=== PATIENT | male | born 1985 | race Caucasian/White ===

== ENCOUNTER 2016-04-14 14:55 | Emergency (ER) | payer MEDICARE, MEDICAID ==
[2016-04-14] MEDS ORDERED: Lorazepam 2 MG/ML VIAL ONE (15:05)
[2016-04-14 15:20] LABS: #Basophils 0.1 thou/uL (0.0-0.2); #Eosinphils 0.1 thou/uL (0.0-0.7); #Lymphocytes 1.7 thou/uL (1.20-3.40); #Monocytes 1.2 thou/uL (0.11-0.59); #Neutrophils 8.4 thou/uL (1.40-6.50); %Basophils 0.7 % (0.0-1.0); %Eosinophils 0.9 % (0.0-10.0); %Monocytes 10.4 % (0.0-10.0); Hematocrit 42.1 % (42.0-52.0); Mean Platelet Volume 7.6 fL (7.4-10.4); Red Blood Cell (RBC) Count 4.48 mill/uL (4.70-6.10); White Blood Cell (WBC) Count 11.4 thou/uL (4.8-10.8)
[2016-04-14 15:35] LABS: ALT (SGPT) 27 U/L (0-55); AST (SGOT) 31 U/L (5-34); Alkaline Phosphatase 62 U/L (40-150); Anion Gap 15 mmol/L (10-20); BUN (Urea Nitrogen) 6 mg/dL (8.9-20.6); Bilirubin, Total 0.6 mg/dL (0.2-1.2); CK (CPK) 2105 U/L (30-200); Calc. Creatinine Clearance 0 mL/min (70-130); Calcium 8.9 mg/dL (7.8-10.44); Carbon Dioxide 23 mmol/L (22-29); Chloride 109 mmol/L (98-107); Estimated GFR-MDRD 83; Protein, Total 6.1 g/dL (6.0-8.3)
--- NOTE | 2016-04-14 16:49 | ERRECORD ---
[facility] EMERGENCY RECORD HPI GENERAL (15:07 [facility] CHIEF COMPLAINT: Patient presents for evaluation of Drug abuse. HISTORIAN: History provided by patient, 30M with a history of bipolar disorder and drug abuse BIBEMS and SO after grandparents called police due to abnormal behavior. Patient was apparently running in circles on grandparents property, agitated and acting bizarrely. Recently seen in [facility] for similar complaint last night. Reports Methamphetamine use today, denies any other use. States he took 10 Benadryl prior to last ED visit, which is corroborated by ED note from other facility. Denies complaints other than wrist pain from handcuffs. QUALITY: Unable to describe the quality of the pain. TIME COURSE: Sudden onset of symptoms, Symptoms are improving. RELIEVED BY: Patient's condition relieved by prescription medications, ativan given by EMS. ROS (15:11 JJA) CONSTITUTIONAL: Negative constitutional review of systems, Historian denies chills, denies fever. EYES: Negative eye review of systems, Historian denies eye pain, denies vision changes. ENT: Negative ears, nose, throat review of systems, Historian denies rhinorrhea, denies sore throat, denies voice changes. CARDIOVASCULAR: Negative cardiovascular review of systems, Historian denies chest pain, denies palpitations. RESPIRATORY: Negative respiratory review of systems, Historian denies cough, denies shortness of breath. GI: Negative gastrointestinal review of systems, Historian denies abdominal pain, denies constipation, denies diarrhea, denies nausea, denies vomiting. GENITOURINARY FEMALE: Negative genitourinary review of systems, Historian denies dysuria, denies frequency. MUSCULOSKELETAL: Negative musculoskeletal review of systems, Historian denies back pain, denies fall, denies injury. SKIN: Negative skin review of systems, Historian denies rash, denies skin changes. NEUROLOGIC: Negative neurologic review of systems, Historian denies headache, denies mental status changes, denies paralysis, denies paresthesias, denies sensory changes. HEMO/LYMPHATIC: Normal hematologic/lymphatic system review, Historian denies abnormal blood clotting. ALLERGIC/IMMUNOLOGIC: Normal allergy/immunologic system review, Historian denies frequent infections. PSYCHIATRIC: Historian reports drug abuse, reports methamphetamine abuse. agitated, aggresive. PAST MEDICAL HISTORY (15:17 CTUR) MEDICAL HISTORY: kidney stones. 01/21/16. Reviewed 04/13/16. &a-1R&a+25V*p+0X*i1610M*c202B*c15G*c2P*p-0X&a-25V&a+1R Name: Cooper Vargas : 1985 M30 MedRec: [id number] AcctNum: [id number] Prepared: TueApr 14, 2016 17:19 by Interface Page 1 of 4 pMD [facility] EMERGENCY RECORD reviewed 04/14/16. MALE SURGICAL HISTORY: urethra as a child, verified 10/29/15. 04/13/16. reviewed 04/14/16. PSYCHIATRIC HISTORY: Psychiatric history includes, bipolar disorder. 01/21/16. Reviewed 04/13/16. reviewed 04/14/16. SOCIAL HISTORY: Patient denies alcohol use, Patient currently uses drugs, abuses amphetamines, abuses marijuana, abuses methamphetamines, Social drug use, Last used: mairjuana 02/04/16, Meth x4 days ago, Drug history notes: bath salts, Patient currently uses tobacco, smokes cigarettes, chews tobacco, daily, Patient smokes 1/2 packs per day. reviewed 04/14/16. KNOWN ALLERGIES Geodon oral: - muscle spasms Haldol injection: - muscle spasms Haldol tablet Latuda: - muscle spasms Moxifloxacin (Unconfirmed) Penicillin G Sodium (Unconfirmed) Penicillins Quinolones (Unconfirmed) CURRENT MEDICATIONS (15:47 CTUR) SEROquel: TABLET : Strength - 200 mg : ORAL Patient Dose: 1 tab(s) Oral once a day (at bedtime). VITAL SIGNS VITAL SIGNS: BP: 140/121, Pulse: 96, Resp: 22, Temp: 98.4 (Oral), O2 sat: 96 on Room Air, Time: 04/14/2016 15:00. (15:00 CTUR) BP: 124/70, Pulse: 98, Resp: 20, Pain: 9, O2 sat: 96 on Room Air, Time: 04/14/2016 15:15. (15:15 CTUR) BP: 120/79, Pulse: 99, Resp: 18, Temp: 98.4 (Oral), Pain: 8, O2 sat: 97 on Room Air, Time: 04/14/2016 16:09. (16:09 CTUR) PHYSICAL EXAM (15:11 [facility]) CONSTITUTIONAL: Vital signs reviewed, Patient afebrile, Pulse normal, Blood pressure normal, Respiratory rate normal, Patient appears non toxic, Patient appears pain free, Patient alert and oriented to person, place and time. HEAD: Head exam normal, Head exam included findings of head atraumatic, normocephalic. EYES: Eye exam normal, Eye exam included findings of eyelids normal to inspection, Pupils equally round and reactive to light, Extraocular muscles intact, no nystagmus. ENT: ENT exam normal, Ear exam normal, external ear normal, tympanic membranes normal, no bleeding, Pharynx exam normal, Uvula exam normal, Tonsil exam normal, Mouth exam normal, mucous membranes moist, teeth normal. NECK: Neck exam normal, Neck exam included findings of normal &a-1R&a+25V*p+0X*[id number]*c202B*c15G*c2P*p-0X&a-25V&a+1R Name: Cooper Vargas : 1985 M30 MedRec: [id number] AcctNum: [id number] Prepared: TueApr 14, 2016 17:19 by Interface Page 2 of 4 D [facility] EMERGENCY RECORD range of motion, Trachea midline, no meningeal signs, no cervical adenopathy, no tenderness. RESPIRATORY CHEST: Respiratory and chest exam normal, Respiratory exam included findings of no respiratory distress, Breath sounds clear. CARDIOVASCULAR: Cardiovascular assessment normal, Cardiovascular exam included findings of heart rate regular rate and rhythm, Heart sounds normal. ABDOMEN FEMALE: Abdominal exam included findings of abdomen nontender, Bowel sounds normal, no distension, no mass, no pulsatile masses, no peritoneal signs, no rigidity, no guarding, no rebound, Rovsing's sign absent. BACK: Back exam normal, Back exam included findings of normal inspection, range of motion normal, no tenderness. UPPER EXTREMITY: Upper extremity exam normal, Upper extremity exam included findings of inspection normal, Range of motion normal, Motor strength normal, Sensation intact, Radial pulse normal. LOWER EXTREMITY: Lower extremity exam normal, Lower extremity exam included findings of inspection normal, Range of motion normal, Motor strength normal, Sensation intact, Posterior tibial pulse normal, Pedal pulse normal. NEURO: Neuro exam normal, Neuro exam findings include patient oriented to person, place and time, Speech normal, Gait normal, Cranial nerves intact, no focal motor deficits, no focal sensory deficits. SKIN: Skin exam normal, Skin exam included findings of skin warm, dry, and normal in color, no rash. PSYCHIATRIC: Psychiatric exam included findings of patient oriented to person place and time, Normal affect, agitated, hyperactive, but responding to questions appropriately and coherently. MEDICATION ADMINISTRATION SUMMARY Drug Name: *Normal Saline, Dose Ordered: 1000 mL, Route: IV Fluid Infusion, Status: Given, Time: 16:10 04/14/2016, Drug Name: *Normal Saline, Dose Ordered: 1000 mL, Route: IV Fluid Infusion, Status: Given, Time: 15:40 04/14/2016, Drug Name: Ativan injection, Dose Ordered: 1 mg, Route: IV Push, Status: Given, Time: 15:08 04/14/2016, *Additional information available in notes, Detailed record available in Medication Service section. DOCTOR NOTES (16:26 [facility]) RE-EVALUATION: Routine re-evaluation, after administration of IV fluids, Routine re-evaluation, after administration of sedation, The patient's condition has improved. TEXT: Patient presented after drug use with agitation and combative behavior. Admitted to Methamphetamine use. VS stable, but labs notable for mild rhabdomyolysis likely secondary to drug use and &a-1R&a+25V*p+0X*k1288C*c202B*c15G*c2P*p-0X&a-25V&a+1R Name: Cooper Vargas : 1985 M30 MedRec: [id number] AcctNum: [id number] Prepared: TueApr 14, 2016 17:19 by Interface Page 3 of 4 pMD [facility] EMERGENCY RECORD agitation. Delivered two litres of IV fluids, has normal renal function, and at this time I believe the patient is appropriate for discharge into police custody. Counseled patient on drug use. He denied SI/HI. PATIENT STATUS: Patient has improved since arrival to emergency department. PATIENT PLAN: The patient will be discharged. DATA REVIEWED: Lab data reviewed. PROBLEM LIST No recorded problems DIAGNOSIS (16:43 [facility]) FINAL: PRIMARY: RHABDOMYOLYSIS, ADDITIONAL: substance abuse. PRESCRIPTION No recorded prescriptions DISPOSITION PATIENT: Disposition Type: Discharge, Disposition: Discharge to [facility]. (16:43 KEVAN) Patient left the department. (17:13 ASIYA) Figueroa: ASIYA=DAISY Lopez, Carolina MATHUR=MD Pat, Emiliano &a-1R&a+25V*p+0X*[id number]*c202B*c15G*c2P*p-0X&a-25V&a+1R Name: Cooper Vargas Johnathon : 1985 M30 MedRec: [id number] AcctNum: [id number] Prepared: TueApr 14, 2016 17:19 by Interface Page 4 of 4 pMD MTDD
--- NOTE | 2016-04-14 16:55 | PICIS ---
[facility] EMERGENCY RECORD TRIAGE (TueApr 14, 2016 14:59 CTUR) TRIAGE NOTES: Pt was found standing in driveway running in circles, pt suspected of taking bath salts, pt is very agitated. At this time pt yells requesting to remove hand cuffs, denies taking any substances. 2mgIVP Ativan given RELAY OPERATOR. (TueApr 14, 2016 14:59 CTUR) PATIENT: NAME: Cooper Vargas, AGE: 30, GENDER: male, : Sun 1985, TIME OF GREET: TueApr 14, 2016 14:55, PREFERRED LANGUAGE: Tamazight, ETHNICITY: Not or , ECODE BILLING MAP: [facility], SSN: [id number], Zip Code: [address], PHONE: , , , PERSON ID: [id number], PAYMENT: X Medicare. (TueApr 14, 2016 14:59 CTUR) KG WEIGHT: 81.7 (est.). (14:59 CTUR) ADMISSION: URGENCY: 2 Emergent, ADMISSION SOURCE: Home, TRANSP[place] [facility], BED: TRIAGE. (TueApr 14, 2016 14:59 CTUR) SIRS SCORING: Heart Rate 55-109 (0), Heart Rate 110-139 (2), Temp range 96.8-101.1 (0), respiratory rate 12-24 (0), Mental status altered: yes (1), Total SIRS Score 3. (15:17 CTUR) PROVIDERS: TRIAGE NURSE: Carolina Lopez RN. (TueApr 14, 2016 14:59 CTUR) PREVIOUS VISIT ALLERGIES: Geodon oral, Haldol injection, Haldol tablet, Latuda, Penicillins. (TueApr 14, 2016 14:59 CTUR) Geodon oral, Haldol injection, Haldol tablet, Latuda, Penicillins. (15:17 CTUR) KNOWN ALLERGIES Geodon oral: - muscle spasms Haldol injection: - muscle spasms Haldol tablet Latuda: - muscle spasms Moxifloxacin (Unconfirmed) Penicillin G Sodium (Unconfirmed) Penicillins Quinolones (Unconfirmed) CURRENT MEDICATIONS (15:47 CTUR) SEROquel: TABLET : Strength - 200 mg : ORAL Patient Dose: 1 tab(s) Oral once a day (at bedtime). VITAL SIGNS VITAL SIGNS: BP: 140/121, Pulse: 96, Resp: 22, Temp: 98.4 (Oral), O2 sat: 96 on Room Air, Time: 04/14/2016 15:00. (15:00 CTUR) BP: 124/70, Pulse: 98, Resp: 20, Pain: 9, O2 sat: 96 on Room Air, Time: 04/14/2016 15:15. (15:15 CTUR) BP: 120/79, Pulse: 99, Resp: 18, Temp: 98.4 (Oral), Pain: 8, O2 sat: 97 on Room Air, Time: 04/14/2016 16:09. (16:09 CTUR) &a-1R&a+25V*p+0X*b5105R*c202B*c15G*c2P*p-0X&a-25V&a+1R Name: Cooper Vargas : 1985 M30 MedRec: [id number] AcctNum: [id number] Prepared: TueApr 14, 2016 17:19 by Interface Page 1 of 9 pMD [facility] EMERGENCY RECORD NURSING ASSESSMENT: PSYCH/SOCIAL (15:02 CTUR) CONSTITUTIONAL: Complex assessment performed, Patient arrives, via [facility], Unsteady gait, Lift to cart, History obtained from, [facility], Patient appears, intoxicated, Patient, combative, agitated, Patient alert, Patient is, oriented to place, "I don't know where I am at", Skin warm, Skin dry, Skin, ashen in color, Mucous membranes pink, Mucous membranes moist, Patient, poorly groomed, with poor personal hygiene, Patient complains of Ingestion, Pt has ingested unknown substance, possible meth ingestion per EMS report. EMS administered 2mg Ativan IVP filling room operator due to pt agitated states. At this time pt is cursing and yelling "take me out of these fucking handcuffs", "tell me what I did to deserve this". Pt is agitated and not safe to be out of cuffs a. PSYCH/SOCIAL: Psychiatric/social assessment findings include affect, agitated, aggressive, crying, no complaint of visual hallucinations, no complaint of auditory hallucinations, no complaint of tactile hallucinations, no suicidal ideations, no homicidal ideations, no reported overdose. SUICIDE RISK ASSESSMENT TOOL: Suicide Risk Assessment findings: Mental State (Moderate risk):, moderate depression, some sadness, some symptoms of psychosis, some feelings of hopelessness, moderate anger, hostility, Suicide Attempt or Suicidal Thoughts (Low risk):, no recent attempts, Substance Disorder (High risk):, current substance intoxication, Corroborative History (Moderate risk):, access to some information, some doubts to plausibility of person's account of events, Strengths and Support (High risk):, lack of supportive relationships, hostile relationships, Reflective Practice (High risk):, high changeability, Suicide Risk: None, no evidence of current risk to the person, no thought of suicide or history of attempts, This person's risk level is highly changeable, There are factors that indicate a level of uncertainty in this risk assessment, indicating a low assessment confidence. SAFETY: Side rails up, Cart/Stretcher in lowest position, Call light within reach, Hospital ID band on, Notes: officer at bedside, pt cuffs behind his back. NURSING PROCEDURE: INTAKE AND OUTPUT (15:30 AHOO) INTAKE AND OUTPUT: Total Intake (ml): 0ml, Urine output(ml): 150, Total Output (ml): 150ml, Grand Total: Output is greater than intake by 150mls. NURSING PROCEDURE: IV PATIENT IDENITIFIER: Patient actively involved in identification process, Patient's identity verified by patient stating date, &a-1R&a+25V*p+0X*d9112G*c202B*c15G*c2P*p-0X&a-25V&a+1R Name: Cooper Vargas : 1985 M30 MedRec: [id number] AcctNum: [id number] Prepared: TueApr 14, 2016 17:19 by Interface Page 2 of 9 D [facility] EMERGENCY RECORD Patient's identity verified by hospital ID quirinocelet. (15:05 CTUR) IV SITE 1: IV therapy indicated for medication administration, IV established, to the right forearm, using a 20 gauge catheter, in one attempt, IV site prepped with chloraprep, Saline lock established, Flushed with normal saline (mls): 10. (15:05 CTUR) FOLLOW-UP SITE 1: After procedure, 2x2 dressing applied, After procedure, no drainage at IV site, After procedure, no swelling at IV site, After procedure, no redness at IV site, IV discontinued, due to patient being discharged, catheter intact. (17:00 AHOO) SAFETY: Side rails up, Cart/Stretcher in lowest position, Call light within reach, Hospital ID band on. (15:05 CTUR) NURSING PROCEDURE: NURSE NOTES NURSES NOTES: Notes: Officer at bedside at this time, removed cuffs from behind pt back and cuffed pt to bilat side rails of hospital bed. (15:25 CTUR) Notes: Pt left hand uncuffed at this time to assist with urinal, pt tolerated and cooperated with the process. Pt then recuffed to the bed, officer remains at bedside. (15:35 CTUR) Notes: Pt has now admitted to snorting meth taking K2 and snorting a line of dope. Pt reports taking speed as well. Officer at bedside, pt remains moving about in the bed with frantic motions. (15:40 CTUR) Notes: Officer remains at bedside, pt continues to move about in the bed, both hands remain cuffed to side rails at this time. Pt crying and intermittently asking if he willgo to penitentiary or not. ERMD aware of pt condition, saline infusing. (16:21 CTUR) Notes: Pt assisted with use of urinal, left hand uncuffed at this time, pt cooperated throughout procedure. Pt then placed back in cuffs to both side rails, fluids continue infusing. (16:35 CTUR) NURSING PROCEDURE: URINE COLLECTION (15:30 AHOO) PATIENT IDENTIFIER: Patient actively involved in identification process, Patient's identity verified by patient stating name, Patient's identity verified by patient stating date, Patient's identity verified by hospital ID bracelet. URINE COLLECTION MALE: Urine collected by void, urine clear in color, and cloudy, Notes: 150CC URINE. ORDER DETAILS Order Name: CBC with Differential, Status: Active, Time: 15:03 04/14/2016, User: KEVAN, - Ordered for: MD Stewart Jason, - Entered by: MD Stewart Jason - TueApr 14, 2016 15:03, - Quantity: 1, Order Name: CK (CPK), Status: Active, Time: 15:03 04/14/2016, User: KEVAN, - Ordered for: MD Stewart Jason, - Entered by: MD Stewart Jason - TueApr 14, 2016 15:03, &a-1R&a+25V*p+0X*v9480S*c202B*c15G*c2P*p-0X&a-25V&a+1R Name: Cooper Vargas : 1985 M30 MedRec: [id number] AcctNum: [id number] Prepared: TueApr 14, 2016 17:19 by Interface Page 3 of 9 D [facility] EMERGENCY RECORD - Quantity: 1, Order Name: Comprehensive Metabolic Panel, Status: Active, Time: 15:03 04/14/2016, User: KEVAN, - Ordered for: MD Stewart Jason, - Entered by: MD Stewart Jason - TueApr 14, 2016 15:03, - Quantity: 1, Order Name: SALINE LOCK, Status: Done, Time: 15:13 04/14/2016, User: ASIYA, - Ordered for: MD Stewart Jason, - Entered by: MD Stewart Jason - TueApr 14, 2016 15:03, - Quantity: 1. MEDICATION ADMINISTRATION SUMMARY Drug Name: *Normal Saline, Dose Ordered: 1000 mL, Route: IV Fluid Infusion, Status: Given, Time: 16:10 04/14/2016, Drug Name: *Normal Saline, Dose Ordered: 1000 mL, Route: IV Fluid Infusion, Status: Given, Time: 15:40 04/14/2016, Drug Name: Ativan injection, Dose Ordered: 1 mg, Route: IV Push, Status: Given, Time: 15:08 04/14/2016, *Additional information available in notes, Detailed record available in Medication Service section. MEDICATION SERVICE Ativan injection: Order: Ativan injection (lorazepam) - Dose: 1 mg : IV Push Ordered by: Emiliano Stewart MD Entered by: Emiliano Stewart MD TueApr 14, 2016 15:05 Documented as given by: Carolina Lopez RN TueApr 14, 2016 15:08 Patient, Medication, Dose, Route and Time verified prior to administration. Amount given: 1mg, IV SITE #1 IVP, initial medication, Slowly, Catheter placement confirmed via flush prior to administration, IV site without signs or symptoms of infiltration during medication administration, No swelling during administration, No drainage during administration, IV flushed after administration, Correct patient, time, route, dose and medication confirmed prior to administration, Patient advised of actions and side-effects prior to administration, Allergies confirmed and medications reviewed prior to administration, Patient in position of comfort, Side rails up, Cart in lowest position. : Follow Up : Response assessment performed, No signs or symptoms of allergic reaction noted, _IV SITE #1:_, PT REMAINS AGITATED. (17:00 AHOO) Normal Saline: Order: Normal Saline (0.9 % sodium chloride) - Dose: 1000 mL : IV Fluid Infusion Schedule: Bolus Notes: Read back and verified, Verbal Order Ordered by: Emiliano Stewart MD Entered by: Carolina Lopez RN TueApr 14, 2016 16:16 &a-1R&a+25V*p+0X*b1754Y*c202B*c15G*c2P*p-0X&a-25V&a+1R Name: Cooper Vargas : 1985 M30 MedRec: [id number] AcctNum: [id number] Prepared: TueApr 14, 2016 17:19 by Interface Page 4 of 9 pMD [facility] EMERGENCY RECORD Documented as given by: Carolina Lopez RN TueApr 14, 2016 15:40 Patient, Medication, Dose, Route and Time verified prior to administration. Amount given: 1000mL, IV SITE #1 IV fluids established for hydration, IV SITE #1 into right forearm, IV SITE #1 1st bag hung, amount 1 Liter hung, via primary tubing, Catheter placement confirmed via flush prior to administration, IV site without signs or symptoms of infiltration during medication administration, No swelling during administration, No drainage during administration, IV flushed after administration, Correct patient, time, route, dose and medication confirmed prior to administration, Patient advised of actions and side-effects prior to administration, Allergies confirmed and medications reviewed prior to administration, Patient in position of comfort, Side rails up, Cart in lowest position. : Follow Up : Response assessment performed, No signs or symptoms of allergic reaction noted, Increased urine output, _IV SITE #1:_, IV fluid infusion discontinued, on TueApr 14, 2016 16:09, 30 minutes, ., Total amount infused: 1000mL, Advised not to ambulate without assistance, Patient in position of comfort, Side rails up, Cart in lowest position. (16:08 CTUR) Normal Saline: Order: Normal Saline (0.9 % sodium chloride) - Dose: 1000 mL : IV Fluid Infusion Schedule: Bolus Notes: Read back and verified, Verbal Order Ordered by: Emiliano Stewart MD Entered by: Carolina Lopez RN TueApr 14, 2016 16:18 Documented as given by: Carolina Lopez RN TueApr 14, 2016 16:10 Patient, Medication, Dose, Route and Time verified prior to administration. Amount given: 1000mL, IV SITE #1 IV fluids established for hydration, IV SITE #1 into right forearm, IV SITE #1 2nd bag hung, amount 1 Liter hung, via primary tubing, Catheter placement confirmed via flush prior to administration, IV site without signs or symptoms of infiltration during medication administration, No swelling during administration, No drainage during administration, IV flushed after administration, Correct patient, time, route, dose and medication confirmed prior to administration, Patient advised of actions and side-effects prior to administration, Allergies confirmed and medications reviewed prior to administration, Patient in position of comfort, Side rails up, Cart in lowest position. : Follow Up : Response assessment performed, No signs or symptoms of allergic reaction noted, _IV SITE #1:_, IV fluid infusion discontinued, on TueApr 14, 2016 17:00, 50 minutes, ., Total amount infused: 1L, IV Discontinued with catheter intact. (17:00 OO) HPI GENERAL (15:07 [facility]) CHIEF COMPLAINT: Patient presents for evaluation of Drug abuse. &a-1R&a+25V*p+0X*c2129A*c202B*c15G*c2P*p-0X&a-25V&a+1R Name: Cooper Vargas : 1985 M30 MedRec: [id number] AcctNum: [id number] Prepared: TueApr 14, 2016 17:19 by Interface Page 5 of 9 pMD [facility] EMERGENCY RECORD HISTORIAN: History provided by patient, 30M with a history of bipolar disorder and drug abuse BIBEMS and SO after grandparents called police due to abnormal behavior. Patient was apparently running in circles on grandparents property, agitated and acting bizarrely. Recently seen in [facility] for similar complaint last night. Reports Methamphetamine use today, denies any other use. States he took 10 Benadryl prior to last ED visit, which is corroborated by ED note from other facility. Denies complaints other than wrist pain from handcuffs. QUALITY: Unable to describe the quality of the pain. TIME COURSE: Sudden onset of symptoms, Symptoms are improving. RELIEVED BY: Patient's condition relieved by prescription medications, ativan given by EMS. ROS (15:11 [facility]) CONSTITUTIONAL: Negative constitutional review of systems, Historian denies chills, denies fever. EYES: Negative eye review of systems, Historian denies eye pain, denies vision changes. ENT: Negative ears, nose, throat review of systems, Historian denies rhinorrhea, denies sore throat, denies voice changes. CARDIOVASCULAR: Negative cardiovascular review of systems, Historian denies chest pain, denies palpitations. RESPIRATORY: Negative respiratory review of systems, Historian denies cough, denies shortness of breath. GI: Negative gastrointestinal review of systems, Historian denies abdominal pain, denies constipation, denies diarrhea, denies nausea, denies vomiting. GENITOURINARY FEMALE: Negative genitourinary review of systems, Historian denies dysuria, denies frequency. MUSCULOSKELETAL: Negative musculoskeletal review of systems, Historian denies back pain, denies fall, denies injury. SKIN: Negative skin review of systems, Historian denies rash, denies skin changes. NEUROLOGIC: Negative neurologic review of systems, Historian denies headache, denies mental status changes, denies paralysis, denies paresthesias, denies sensory changes. HEMO/LYMPHATIC: Normal hematologic/lymphatic system review, Historian denies abnormal blood clotting. ALLERGIC/IMMUNOLOGIC: Normal allergy/immunologic system review, Historian denies frequent infections. PSYCHIATRIC: Historian reports drug abuse, reports methamphetamine abuse. agitated, aggresive. PAST MEDICAL HISTORY (15:17 CTUR) MEDICAL HISTORY: kidney stones. 01/21/16. Reviewed 04/13/16. reviewed 04/14/16. MALE SURGICAL HISTORY: urethra as a child, verified 10/29/15. 04/13/16. reviewed 04/14/16. &a-1R&a+25V*p+0X*f6062R*c202B*c15G*c2P*p-0X&a-25V&a+1R Name: Cooper Vargas : 1985 M30 MedRec: [id number] AcctNum: [id number] Prepared: TueApr 14, 2016 17:19 by Interface Page 6 of 9 pMD [facility] EMERGENCY RECORD PSYCHIATRIC HISTORY: Psychiatric history includes, bipolar disorder. 01/21/16. Reviewed 04/13/16. reviewed 04/14/16. SOCIAL HISTORY: Patient denies alcohol use, Patient currently uses drugs, abuses amphetamines, abuses marijuana, abuses methamphetamines, Social drug use, Last used: mairjuana 02/04/16, Meth x4 days ago, Drug history notes: bath salts, Patient currently uses tobacco, smokes cigarettes, chews tobacco, daily, Patient smokes 1/2 packs per day. reviewed 04/14/16. PHYSICAL EXAM (15:11 [facility]) CONSTITUTIONAL: Vital signs reviewed, Patient afebrile, Pulse normal, Blood pressure normal, Respiratory rate normal, Patient appears non toxic, Patient appears pain free, Patient alert and oriented to person, place and time. HEAD: Head exam normal, Head exam included findings of head atraumatic, normocephalic. EYES: Eye exam normal, Eye exam included findings of eyelids normal to inspection, Pupils equally round and reactive to light, Extraocular muscles intact, no nystagmus. ENT: ENT exam normal, Ear exam normal, external ear normal, tympanic membranes normal, no bleeding, Pharynx exam normal, Uvula exam normal, Tonsil exam normal, Mouth exam normal, mucous membranes moist, teeth normal. NECK: Neck exam normal, Neck exam included findings of normal range of motion, Trachea midline, no meningeal signs, no cervical adenopathy, no tenderness. RESPIRATORY CHEST: Respiratory and chest exam normal, Respiratory exam included findings of no respiratory distress, Breath sounds clear. CARDIOVASCULAR: Cardiovascular assessment normal, Cardiovascular exam included findings of heart rate regular rate and rhythm, Heart sounds normal. ABDOMEN FEMALE: Abdominal exam included findings of abdomen nontender, Bowel sounds normal, no distension, no mass, no pulsatile masses, no peritoneal signs, no rigidity, no guarding, no rebound, Rovsing's sign absent. BACK: Back exam normal, Back exam included findings of normal inspection, range of motion normal, no tenderness. UPPER EXTREMITY: Upper extremity exam normal, Upper extremity exam included findings of inspection normal, Range of motion normal, Motor strength normal, Sensation intact, Radial pulse normal. LOWER EXTREMITY: Lower extremity exam normal, Lower extremity exam included findings of inspection normal, Range of motion normal, Motor strength normal, Sensation intact, Posterior tibial pulse normal, Pedal pulse normal. NEURO: Neuro exam normal, Neuro exam findings include patient oriented to person, place and time, Speech normal, Gait normal, Cranial nerves intact, no focal motor deficits, no focal sensory deficits. SKIN: Skin exam normal, Skin exam included findings of skin warm, &a-1R&a+25V*p+0X*y4439T*c202B*c15G*c2P*p-0X&a-25V&a+1R Name: Cooper Vargas : 1985 M30 MedRec: [id number] AcctNum: [id number] Prepared: TueApr 14, 2016 17:19 by Interface Page 7 of 9 pMD [facility] EMERGENCY RECORD dry, and normal in color, no rash. PSYCHIATRIC: Psychiatric exam included findings of patient oriented to person place and time, Normal affect, agitated, hyperactive, but responding to questions appropriately and coherently. LAB INTERPRETATION (16:25 [facility]) INTERPRETATION: I reviewed the lab results, CBC normal, Chemistry normal, CK elevated. EVENTS TRANSFER: Triage to Emergency Triage. (TueApr 14, 2016 14:59 CTUR) Emergency Triage to Emergency Room -04. (14:59 CTUR) Removed from Emergency Emergency Room -04. (17:13 CTUR) DOCTOR NOTES (16:26 [facility]) RE-EVALUATION: Routine re-evaluation, after administration of IV fluids, Routine re-evaluation, after administration of sedation, The patient's condition has improved. TEXT: Patient presented after drug use with agitation and combative behavior. Admitted to Methamphetamine use. VS stable, but labs notable for mild rhabdomyolysis likely secondary to drug use and agitation. Delivered two litres of IV fluids, has normal renal function, and at this time I believe the patient is appropriate for discharge into police custody. Counseled patient on drug use. He denied SI/HI. PATIENT STATUS: Patient has improved since arrival to emergency department. PATIENT PLAN: The patient will be discharged. DATA REVIEWED: Lab data reviewed. PROBLEM LIST No recorded problems DIAGNOSIS (16:43 [facility]) FINAL: PRIMARY: RHABDOMYOLYSIS, ADDITIONAL: substance abuse. DISPOSITION PATIENT: Disposition Type: Discharge, Disposition: Discharge to [facility] (16:43 [facility]) Patient left the department. (17:13 CTUR) PRESCRIPTION No recorded prescriptions ADMIN (16:44 [facility]) DIGITAL SIGNATURE: MD Pat, Emiliano. Figueroa: &a-1R&a+25V*p+0X*m4694B*c202B*c15G*c2P*p-0X&a-25V&a+1R Name: Cooper Vargas : 1985 10 MedRec: [id number] AcctNum: [id number] Prepared: TueApr 14, 2016 17:19 by Interface Page 8 of 9 pMD [facility] EMERGENCY RECORD AHOO=ANITRA Motnalvo, July CTUR=DAISY Lopez, Carolina [facility]=MD Stewart Jason &a-1R&a+25V*p+0X*x8311X*c202B*c15G*c2P*p-0X&a-25V&a+1R Name: Cooper Vargas Johnathon : 1985 [facility] [place] MedRec: [id number] AcctNum: [id number] Prepared: TueApr 14, 2016 17:19 by Interface Page 9 of 9 pMD MTDD
== END 2016-04-14 17:13 ==
LOC: BURERS 14:55
DX: F15.10 Other stimulant abuse, uncomplicated (principal); M62.82 Rhabdomyolysis; F31.9 Bipolar disorder, unspecified; F17.210 Nicotine dependence, cigarettes, uncomplicated
CPT/HCPCS: 36415; 80053; 82550; 85025; 96361; 96374; J2060

== ENCOUNTER 2016-10-26 15:57 | Outpatient (CLI) | payer MEDICARE, MEDICAID ==
--- NOTE | 2016-10-26 19:46 | RAD ---
CHEST TWO VIEWS 10/26/16 Comparison is mad with the 10/02/10 study. The heart is normal in size and the mediastinum is normal in width. There is no tracheal shift. The lungs are fully inflated and clear. No infiltrate, effusion, or acute change was seen. The lungs are hyperexpanded with flattening of the diaphragm suggesting air trapping. No bony abnormality or frac ture was appreciated. IMPRESSION: Hyperexpanded lungs but no acute findings otherwise. POS: HOME
== END 2016-10-26 15:58 | disposition home or self-care (01) ==
LOC: BURRAD 15:57
PROVIDERS: ATTEND Physician Assistant
DX: R07.81 Pleurodynia (principal)
CPT/HCPCS: 71020

== ENCOUNTER 2016-12-09 23:27 | Emergency (ER) | payer MEDICARE ==
[2016-12-10 00:22] LABS: #Basophils 0.1 thou/uL (0.0-0.2); #Eosinphils 0.2 thou/uL (0.0-0.7); #Lymphocytes 2.3 thou/uL (1.20-3.40); #Monocytes 1.1 thou/uL (0.11-0.59); #Neutrophils 6.1 thou/uL (1.40-6.50); %Basophils 0.9 % (0.0-1.0); %Eosinophils 1.6 % (0.0-10.0); %Lymphocytes 23.5 % (21.0-51.0); %Monocytes 11.3 % (0.0-10.0); %Neutrophils 62.7 % (42.0-75.0); Hemoglobin 14.6 g/dL (14.0-18.0); Mean Corpuscular HGB CONC 34.6 g/dL (32.0-36.0); Mean Corpuscular Hemoglobin 30.8 pg (27.0-31.0); Mean Corpuscular Volume 89.1 fl (80.0-94.0); Mean Platelet Volume 7.1 fL (7.4-10.4); Platelet Count 223 thou/uL (130-400); RBC Distribution Width 13.4 % (11.5-14.5); Red Blood Cell (RBC) Count 4.72 mill/uL (4.70-6.10); White Blood Cell (WBC) Count 9.6 thou/uL (4.8-10.8)
[2016-12-10 00:48] LABS: ALT (SGPT) 43 U/L (8-55); AST (SGOT) 89 U/L (5-34); Albumin 4.5 g/dL (3.5-5.0); Alkaline Phosphatase 71 U/L (40-150); Anion Gap 12 mmol/L (10-20); BUN (Urea Nitrogen) 10 mg/dL (8.9-20.6); Bilirubin, Total 0.9 mg/dL (0.2-1.2); CK (CPK) 4550 U/L (30-200); Calc. Creatinine Clearance 0 mL/min (70-130); Calcium 9.3 mg/dL (7.8-10.44); Carbon Dioxide 27 mmol/L (22-29); Chloride 104 mmol/L (98-107); Estimated GFR-MDRD Greater than 90; Globulin 2.4 g/dL (2.4-3.5); Glucose 84 mg/dL (70-105); Potassium 3.4 mmol/L (3.5-5.1); Protein, Total 6.9 g/dL (6.0-8.3); Sodium 140 mmol/L (136-145)
[2016-12-10] MEDS ORDERED: Potassium Chloride 20 MEQ TAB ONE ×2 (01:14→01:15)
[2016-12-10] MEDS ORDERED: Acetaminophen/Codeine 30-300mg Tablet ONE (01:14)
[2016-12-10 01:47] LABS: Magnesium 2.1 mg/dL (1.6-2.6)
== END 2016-12-10 01:37 | disposition home or self-care (01) ==
LOC: BURERS 23:27
DX: M62.82 Rhabdomyolysis (principal); J45.909 Unspecified asthma, uncomplicated; F90.9 Attention-deficit hyperactivity disorder, unspecified type; F31.9 Bipolar disorder, unspecified; F17.220 Nicotine dependence, chewing tobacco, uncomplicated
CPT/HCPCS: 80053; 82550; 83735; 84550; 85025; 96360; 96361

== ENCOUNTER 2018-03-15 20:22 | Emergency (ER) | payer MEDICARE, OTHER ==
[2018-03-15 21:03] LABS: #Basophils 0.1 thou/uL (0.0-0.2); #Eosinphils 0.2 thou/uL (0.0-0.7); #Lymphocytes 2.3 thou/uL (1.20-3.40); #Monocytes 0.8 thou/uL (0.11-0.59); #Neutrophils 7.9 thou/uL (1.40-6.50); %Basophils 0.8 % (0.0-1.0); %Eosinophils 1.5 % (0.0-10.0); %Lymphocytes 20.3 % (21.0-51.0); %Monocytes 7.5 % (0.0-10.0); %Neutrophils 69.9 % (42.0-75.0); Hemoglobin 16.1 g/dL (14.0-18.0); Mean Corpuscular HGB CONC 35.1 g/dL (32.0-36.0); Mean Corpuscular Hemoglobin 30.4 pg (27.0-31.0); Mean Corpuscular Volume 86.4 fL (78.0-98.0); Mean Platelet Volume 7.4 fL (7.4-10.4); Platelet Count 339 thou/uL (130-400); RBC Distribution Width 12.3 % (11.5-14.5); White Blood Cell (WBC) Count 11.2 thou/uL (4.8-10.8)
[2018-03-15 21:04] LABS: Acetaminophen Less than 6.0 mcg/mL (10.0-30.0); Alcohol Less than 10 mg/dL (Less than 10); CK (CPK) 182 U/L (30-200); Salicylate Less than 8.0 mg/dL (15.0-30.0)
[2018-03-15 21:06] LABS: ALT (SGPT) 34 U/L (8-55); AST (SGOT) 21 U/L (5-34); Albumin 4.5 g/dL (3.5-5.0); Alkaline Phosphatase 88 U/L (40-150); Anion Gap 16 mmol/L (10-20); BUN (Urea Nitrogen) 14 mg/dL (8.9-20.6); Bilirubin, Total 0.4 mg/dL (0.2-1.2); Calc. Creatinine Clearance 0 mL/min (70-130); Carbon Dioxide 26 mmol/L (22-29); Chloride 103 mmol/L (98-107); Estimated GFR-MDRD Greater than 90; Glucose 82 mg/dL (70-105); Potassium 3.5 mmol/L (3.5-5.1); Protein, Total 7.5 g/dL (6.0-8.3); Sodium 141 mmol/L (136-145)
[2018-03-15 21:50] LABS: Bilirubin Negative (Negative); Blood, Urine Trace (Negative); Clarity Cloudy (Clear); Glucose, Urine (Dipstick) Negative (Negative); Leukocyte Negative (Negative); Nitrite Negative (Negative); Protein, Urine (Dipstick) 100 mg/dL (Neg-Trace); Specific Gravity, Urine 1.025 (1.005-1.030); Urobilinogen 0.2 mg/dL (0.2-1.0)
[2018-03-15 21:58] LABS: Bacteria/HPF 1+ HPF (None Seen); Crystals/HPF 1+ AMORPH PHOS HPF (Negative); Hyaline Casts/LPF 7-10 HYALINE CAST LPF (0-3 Hyaline); RBC/HPF 0-3 HPF (0-3); Sperm/HPF Rare HPF (None Seen); Squamous Epithelial 0-3 HPF (0-3)
[2018-03-15 21:59] LABS: Amphetamine Detected (NotDetected); Barbiturates Screen Not Detected (NotDetected); Benzodiazepine Screen Not Detected (NotDetected); Cocaine Metabolite Screen Not Detected (NotDetected); Medtox Control Line Valid? VALID (VALID); Methadone Not Detected (NotDetected); Methamphetamine Detected (NotDetected); Opiate Screen Not Detected (NotDetected); Other Microscopic Description LARGE MUCOUS STRANDS; Oxycodone Screen Not Detected (NotDetected); Phencyclidine (PCP) Not Detected (NotDetected); THC/Cannabinoid Screen Detected (NotDetected); Tricyclic Screen Not Detected (NotDetected)
[2018-03-15] MEDS ORDERED: predniSONE 20 MG TAB ONE (22:06)
== END 2018-03-15 22:12 | disposition home or self-care (01) ==
LOC: BURERS 20:22
DX: S00.83XA Contusion of other part of head, initial encounter (principal); F12.10 Cannabis abuse, uncomplicated; F15.10 Other stimulant abuse, uncomplicated; F31.9 Bipolar disorder, unspecified; F90.9 Attention-deficit hyperactivity disorder, unspecified type; F17.210 Nicotine dependence, cigarettes, uncomplicated; J45.909 Unspecified asthma, uncomplicated; Z79.899 Other long term (current) drug therapy; Z87.442 Personal history of urinary calculi; X58.XXXA Exposure to other specified factors, initial encounter
CPT/HCPCS: 80053; 80306; 80307; 81003; 81015; 82550; 84443; 85025; 87086; 87491; 87591; 94640; 94760; J7506

== ENCOUNTER 2018-06-13 03:58 | Emergency (ER) | payer MEDICAID, MEDICARE, OTHER ==
[2018-06-13 05:27] LABS: #Basophils 0.1 thou/uL (0.0-0.2); #Lymphocytes 1.2 thou/uL (1.20-3.40); #Neutrophils 10.2 thou/uL (1.40-6.50); %Basophils 0.6 % (0.0-1.0); %Eosinophils 0.1 % (0.0-10.0); %Lymphocytes 9.3 % (21.0-51.0); %Monocytes 8.1 % (0.0-10.0); Hemoglobin 14.5 g/dL (14.0-18.0); Mean Corpuscular HGB CONC 32.5 g/dL (32.0-36.0); Mean Corpuscular Hemoglobin 30.3 pg (27.0-31.0); Mean Corpuscular Volume 93.3 fL (78.0-98.0); Mean Platelet Volume 7.4 fL (7.4-10.4); Platelet Count 246 thou/uL (130-400); RBC Distribution Width 12.7 % (11.5-14.5); Red Blood Cell (RBC) Count 4.77 mill/uL (4.70-6.10); White Blood Cell (WBC) Count 12.4 thou/uL (4.8-10.8)
[2018-06-13 05:45] LABS: ALT (SGPT) 23 U/L (8-55); AST (SGOT) 28 U/L (5-34); Acetaminophen Less than 6.0 mcg/mL (10.0-30.0); Albumin 4.7 g/dL (3.5-5.0); Alcohol Less than 10 mg/dL (Less than 10); Alkaline Phosphatase 77 U/L (40-150); Anion Gap 15 mmol/L (10-20); BUN (Urea Nitrogen) 10 mg/dL (8.9-20.6); Bilirubin, Total 0.5 mg/dL (0.2-1.2); Calc. Creatinine Clearance 0 mL/min (70-130); Calcium 9.9 mg/dL (7.8-10.44); Carbon Dioxide 30 mmol/L (22-29); Chloride 98 mmol/L (98-107); Estimated GFR-MDRD Greater than 90; Globulin 2.6 g/dL (2.4-3.5); Glucose 150 mg/dL (70-105); Potassium 3.4 mmol/L (3.5-5.1); Protein, Total 7.3 g/dL (6.0-8.3); Salicylate Less than 8.0 mg/dL (15.0-30.0); Sodium 140 mmol/L (136-145)
[2018-06-13 06:28] LABS: Clarity Clear (Clear); Leukocyte Negative (Negative); Nitrite Negative (Negative); Protein, Urine (Dipstick) Negative (Neg-Trace); Specific Gravity, Urine 1.015 (1.005-1.030)
[2018-06-13 06:29] LABS: Bilirubin Negative (Negative); Blood, Urine Trace (Negative); Glucose, Urine (Dipstick) Negative (Negative); Urobilinogen 0.2 mg/dL (0.2-1.0)
[2018-06-13 06:30] LABS: WBC/HPF 0-3 HPF (0-3)
[2018-06-13 06:31] LABS: Bacteria/HPF None Seen HPF (None Seen); Squamous Epithelial 0-3 HPF (0-3)
[2018-06-13 06:59] LABS: Cocaine Metabolite Screen Not Detected (NotDetected); Methamphetamine Detected (NotDetected); Phencyclidine (PCP) Not Detected (NotDetected); THC/Cannabinoid Screen Not Detected (NotDetected)
[2018-06-13 07:00] LABS: Amphetamine Detected (NotDetected); Barbiturates Screen Not Detected (NotDetected); Benzodiazepine Screen Not Detected (NotDetected); Medtox Control Line Valid? VALID (VALID); Methadone Not Detected (NotDetected); Opiate Screen Not Detected (NotDetected); Oxycodone Screen Not Detected (NotDetected); Tricyclic Screen Not Detected (NotDetected)
[2018-06-13] MEDS ORDERED: Acetaminophen 500 MG TAB ONE (11:01)
== END 2018-06-13 13:47 ==
LOC: BURERS 03:58
DX: F22 Delusional disorders (principal); R45.851 Suicidal ideations; T45.0X5A Adverse effect of antiallergic and antiemetic drugs, initial encounter; J45.909 Unspecified asthma, uncomplicated; F31.9 Bipolar disorder, unspecified; F90.9 Attention-deficit hyperactivity disorder, unspecified type; F17.210 Nicotine dependence, cigarettes, uncomplicated; Z79.899 Other long term (current) drug therapy
CPT/HCPCS: 36415; 80053; 80306; 80307; 81003; 81015; 84443; 85025; 93005; 94760

== ENCOUNTER 2018-06-15 02:13 | Emergency (ER) | payer MEDICARE ==
[2018-06-15] MEDS ORDERED: Lorazepam 0.5 MG TAB ONE (02:37)
[2018-06-15 03:22] LABS: Amphetamine Detected (NotDetected); Barbiturates Screen Not Detected (NotDetected); Benzodiazepine Screen Not Detected (NotDetected); Cocaine Metabolite Screen Not Detected (NotDetected); Medtox Control Line Valid? VALID (VALID); Methadone Not Detected (NotDetected); Methamphetamine Detected (NotDetected); Opiate Screen Not Detected (NotDetected); Oxycodone Screen Not Detected (NotDetected); Phencyclidine (PCP) Not Detected (NotDetected); THC/Cannabinoid Screen Not Detected (NotDetected); Tricyclic Screen Not Detected (NotDetected)
== END 2018-06-15 03:00 | disposition home or self-care (01) ==
LOC: BURERS 02:13
DX: F41.1 Generalized anxiety disorder (principal); F17.210 Nicotine dependence, cigarettes, uncomplicated
CPT/HCPCS: 80306; 99281

== ENCOUNTER 2021-02-16 18:36 | Emergency (ER) | payer OTHER, SELFPAY ==
[2021-02-16] MEDS ORDERED: Ketorolac Tromethamine 30 MG/ML VIAL ONE (19:22)
== END 2021-02-16 19:30 | disposition home or self-care (01) ==
LOC: BURERS 18:36
DX: M54.50 Low back pain, unspecified (principal); J45.909 Unspecified asthma, uncomplicated; F17.210 Nicotine dependence, cigarettes, uncomplicated; F17.220 Nicotine dependence, chewing tobacco, uncomplicated
CPT/HCPCS: 96372; 99283; J1885

== ENCOUNTER 2021-06-24 22:43 | Emergency (ER) | payer MEDICARE, SELFPAY ==
[2021-06-24] MEDS ORDERED: Bacitracin 1 PK ONE (23:29)
[2021-06-24] MEDS ORDERED: Boostrix 0.5 ML (Tdap) VIAL ONE (23:29)
[2021-06-24] MEDS ORDERED: Ibuprofen 200 MG TAB ONE (23:29)
== END 2021-06-24 23:52 | disposition home or self-care (01) ==
LOC: BURERS 22:43
DX: S91.332A Puncture wound without foreign body, left foot, initial encounter (principal); J45.909 Unspecified asthma, uncomplicated; F17.210 Nicotine dependence, cigarettes, uncomplicated; F17.220 Nicotine dependence, chewing tobacco, uncomplicated; Z23 Encounter for immunization; W22.8XXA Striking against or struck by other objects, initial encounter
CPT/HCPCS: 90471; 90715

== ENCOUNTER 2023-02-22 21:22 | Emergency (ER) | payer MEDICARE, SELFPAY ==
[2023-02-22] MEDS ORDERED: Lorazepam 2 MG/ML VIAL ONE (21:38)
[2023-02-22] MEDS ORDERED: Lidocaine 1% w/Epinephrine 1:100K 50 ML VIAL ONE (22:07)
[2023-02-22 22:12] LABS: #Eosinphils 0.2 thou/uL (0.0-0.7); #Lymphocytes 0.8 thou/uL (1.20-3.40); #Monocytes 0.5 thou/uL (0.11-0.59); #Neutrophils 5.3 thou/uL (1.40-6.50); %Basophils 0.4 % (0.0-1.0); %Eosinophils 2.6 % (0.0-10.0); %Lymphocytes 11.2 % (21.0-51.0); %Monocytes 7.3 % (0.0-10.0); %Neutrophils 78.5 % (42.0-75.0); Hematocrit 38.8 % (42.0-52.0); Hemoglobin 12.9 g/dL (14.0-18.0); Mean Corpuscular HGB CONC 33.2 g/dL (32.0-36.0); Mean Corpuscular Hemoglobin 30.3 pg (27.0-31.0); Mean Corpuscular Volume 91.2 fl (78.0-98.0); Mean Platelet Volume 8.3 fL (7.4-10.4); Platelet Count 164 10x3/uL (130-400); RBC Distribution Width 12.1 % (11.5-14.5); Red Blood Cell (RBC) Count 4.25 mill/uL (4.70-6.10); White Blood Cell (WBC) Count 6.8 10x3/uL (4.8-10.8)
[2023-02-22 22:28] LABS: Acetaminophen Less than 10 mcg/mL (10.0-30.0); Alcohol Less than 10.0 mg/dL (Less than 10); Salicylate Less than 8.0 mg/dL (15.0-30.0)
[2023-02-22 22:30] LABS: ALT (SGPT) 17 U/L (8-55); AST (SGOT) 14 U/L (5-34); Albumin 3.3 g/dL (3.5-5.0); Alkaline Phosphatase 47 U/L (40-110); Anion Gap 11 mmol/L (10-20); BUN (Urea Nitrogen) 6 mg/dL (8.9-20.6); Bilirubin, Total 0.3 mg/dL (0.2-1.2); Calc. Creatinine Clearance 0 mL/min (70-130); Calcium 7.7 mg/dL (7.8-10.44); Carbon Dioxide 25 mmol/L (22-29); Chloride 110 mmol/L (98-107); Estimated GFR 121; Globulin 1.6 g/dL (2.4-3.5); Glucose 96 mg/dL (70-105); Potassium 4.1 mmol/L (3.5-5.1); Protein, Total 4.9 g/dL (6.0-8.3); Sodium 142 mmol/L (136-145)
== END 2023-02-22 23:20 | disposition home or self-care (01) ==
LOC: BURERS 21:22
DX: S01.112A Laceration without foreign body of left eyelid and periocular area, initial encounter (principal); R53.1 Weakness; E86.0 Dehydration; F17.210 Nicotine dependence, cigarettes, uncomplicated; W18.30XA Fall on same level, unspecified, initial encounter
CPT/HCPCS: 12013; 36415; 70450; 80053; 80307; 85025; 93005; 96361; 96374; J2060

== ENCOUNTER 2023-09-02 22:32 | Emergency (ER) | payer MEDICARE, SELFPAY ==
[2023-09-02] MEDS ORDERED: Lorazepam 1 MG TAB ONE (22:44)
[2023-09-02 22:52] LABS: #Basophils 0.1 thou/uL (0.0-0.2); #Eosinphils 0.3 thou/uL (0.0-0.7); #Lymphocytes 1.7 thou/uL (1.20-3.40); #Monocytes 0.7 thou/uL (0.11-0.59); #Neutrophils 8.5 thou/uL (1.40-6.50); %Basophils 0.5 % (0.0-1.0); %Eosinophils 2.4 % (0.0-10.0); %Lymphocytes 15.4 % (21.0-51.0); %Monocytes 6.5 % (0.0-10.0); %Neutrophils 75.2 % (42.0-75.0); Hematocrit 43.8 % (42.0-52.0); Hemoglobin 14.2 g/dL (14.0-18.0); Mean Corpuscular HGB CONC 32.4 g/dL (32.0-36.0); Mean Corpuscular Volume 89.4 fl (78.0-98.0); Mean Platelet Volume 6.8 fL (7.4-10.4); Platelet Count 259 10x3/uL (130-400); RBC Distribution Width 12.8 % (11.5-14.5); White Blood Cell (WBC) Count 11.3 10x3/uL (4.8-10.8)
[2023-09-02] MEDS ORDERED: OLANZapine ODT 5 MG TAB PO SCH (23:00)
[2023-09-02 23:12] LABS: ALT (SGPT) 19 U/L (8-55); AST (SGOT) 18 U/L (5-34); Acetaminophen Less than 10 mcg/mL (10.0-30.0); Albumin 3.9 g/dL (3.5-5.0); Alcohol Less than 10.0 mg/dL (Less than 10); Alkaline Phosphatase 76 U/L (40-110); Anion Gap 13 mmol/L (10-20); BUN (Urea Nitrogen) 12 mg/dL (8.9-20.6); Bilirubin, Total 0.5 mg/dL (0.2-1.2); CK (CPK) 182 U/L (30-200); Calc. Creatinine Clearance 0 mL/min (70-130); Calcium 8.8 mg/dL (7.8-10.44); Carbon Dioxide 31 mmol/L (22-29); Chloride 99 mmol/L (98-107); Estimated GFR 122; Globulin 1.7 g/dL (2.4-3.5); Glucose 110 mg/dL (70-105); Potassium 4.4 mmol/L (3.5-5.1); Protein, Total 5.6 g/dL (6.0-8.3); Salicylate Less than 8.0 mg/dL (15.0-30.0); Sodium 139 mmol/L (136-145)
[2023-09-03 00:11] LABS: Bilirubin Negative (Negative); Blood, Urine Negative (Negative); Clarity Clear (Clear); Glucose, Urine (Dipstick) Negative (Negative); Ketone, Urine 15 mg/dL (Negative); Leukocyte Negative (Negative); Nitrite Negative (Negative); Protein, Urine (Dipstick) Negative (Neg-Trace); Urobilinogen 0.2 mg/dL (Less than 2)
[2023-09-03 00:20] LABS: Amphetamine Not Detected (NotDetected); Barbiturates Screen Not Detected (NotDetected); Benzodiazepine Screen Not Detected (NotDetected); Cocaine Metabolite Screen Not Detected (NotDetected); Methadone Not Detected (NotDetected); Methamphetamine Not Detected (NotDetected); Opiate Screen Not Detected (NotDetected); Oxycodone Screen Not Detected (NotDetected); Phencyclidine (PCP) Not Detected (NotDetected); THC/Cannabinoid Screen Detected (NotDetected); Tricyclic Screen Not Detected (NotDetected)
[2023-09-03 00:23] LABS: CAUTI Indications for Culture Alt mental st,lethar; RBC/HPF 0-3 HPF (0-3); Squamous Epithelial 0-3 HPF (0-3); WBC/HPF 0-3 HPF (0-3)
[2023-09-03 00:24] LABS: Bacteria/HPF 1+ HPF (None Seen)
[2023-09-03 00:25] LABS: Urine Culture Reflex No No
== END 2023-09-03 02:48 | disposition home or self-care (01) ==
LOC: BURERS 22:32
DX: R45.1 Restlessness and agitation (principal); F17.210 Nicotine dependence, cigarettes, uncomplicated
CPT/HCPCS: 36415; 80053; 80306; 80307; 81001; 82550; 85025; 99285

== ENCOUNTER 2024-03-24 06:34 | Emergency (ER) | payer MEDICARE ==
[2024-03-24] MEDS ORDERED: Clindamycin 150 MG CAP ONE (07:02)
[2024-03-24] MEDS ORDERED: Naproxen 500 MG TAB ONE (07:02)
== END 2024-03-24 07:11 | disposition home or self-care (01) ==
LOC: BURERS 06:34
DX: S80.861A Insect bite (nonvenomous), right lower leg, initial encounter (principal); L03.116 Cellulitis of left lower limb; F17.210 Nicotine dependence, cigarettes, uncomplicated; W57.XXXA Bitten or stung by nonvenomous insect and other nonvenomous arthropods, initial encounter
CPT/HCPCS: 99283

== ENCOUNTER 2024-04-08 00:21 | Emergency (ER) | payer MEDICARE ==
[2024-04-08] MEDS ORDERED: Naproxen 500 MG TAB ONE (01:09)
[2024-04-08] MEDS ORDERED: Tetracaine 0.5% PF 4 ML BOT ONE (01:14)
== END 2024-04-08 01:30 | disposition home or self-care (01) ==
LOC: BURERS 00:21
DX: H92.01 Otalgia, right ear (principal); F17.210 Nicotine dependence, cigarettes, uncomplicated
CPT/HCPCS: 99282

== ENCOUNTER 2024-10-30 18:42 | Emergency (ER) | payer MEDICARE ==
[2024-10-30 19:26] LABS: #Basophils 0.1 thou/uL (0.0-0.2); #Eosinophils 0.1 thou/uL (0.0-0.7); #Lymphocytes 1.9 thou/uL (1.20-3.40); #Monocytes 1.0 thou/uL (0.11-0.59); #Neutrophils 11.5 thou/uL (1.40-6.50); %Basophils 1.0 % (0.0-1.0); %Eosinophils 0.7 % (0.0-10.0); %Lymphocytes 13.0 % (21.0-51.0); %Monocytes 7.0 % (0.0-10.0); %Neutrophils 78.3 % (42.0-75.0); Hematocrit 43.7 % (42.0-52.0); Hemoglobin 14.7 g/dL (14.0-18.0); Mean Corpuscular Hemoglobin 29.2 pg (27.0-31.0); Mean Corpuscular Volume 86.6 fl (78.0-98.0); Platelet Count 284 10x3/uL (130-400); Red Blood Cell (RBC) Count 5.05 mill/uL (4.70-6.10); White Blood Cell (WBC) Count 14.7 10x3/uL (4.8-10.8)
[2024-10-30] MEDS ORDERED: Ketorolac Tromethamine 30 MG (1 mL) VIAL ONE (19:32)
[2024-10-30] MEDS ORDERED: Acetaminophen 325 MG TAB ONE (19:32)
[2024-10-30 19:41] LABS: ALT (SGPT) 22 U/L (Less than 45); AST (SGOT) 24 U/L (11-34); Albumin 4.0 g/dL (3.1-4.5); Alkaline Phosphatase 75 U/L (40-110); Anion Gap 16 mmol/L (10-20); BUN (Urea Nitrogen) 9 mg/dL (8.9-20.6); Bilirubin, Total 0.4 mg/dL (0.3-1.2); CK (CPK) 64 U/L (30-200); Calc. Creatinine Clearance 0 mL/min (70-130); Calcium 9.9 mg/dL (7.8-10.44); Carbon Dioxide 28 mmol/L (22-29); Chloride 102 mmol/L (98-107); Globulin 3.7 g/dL (2.4-3.5); Glucose 88 mg/dL (70-105); Magnesium 1.7 mg/dL (1.6-2.6); Potassium 4.2 mmol/L (3.5-5.1); Sodium 142 mmol/L (136-145)
[2024-10-30] MEDS ORDERED: Lidocaine 1% PF 5 ML VIAL ONE (20:24)
== END 2024-10-30 23:16 | disposition short-term general hospital (02) ==
LOC: BURERS 18:42
DX: A41.9 Sepsis, unspecified organism (principal); L02.413 Cutaneous abscess of right upper limb; L03.113 Cellulitis of right upper limb; F17.290 Nicotine dependence, other tobacco product, uncomplicated
CPT/HCPCS: 10060; 80053; 82550; 83605; 83735; 85025; 87040; 87070; 87077; 87186; 87205; 96365; 96367; 96368; 96375; J1885; J2919; J3373; J3490

== ENCOUNTER 2025-02-18 15:38 | Emergency (ER) | payer MEDICARE ==
[2025-02-18] MEDS ORDERED: Aspirin Chewable 81 MG TAB ONE (15:54)
[2025-02-18 16:25] LABS: ALT (SGPT) 16 U/L (Less than 45); AST (SGOT) 23 U/L (11-34); Albumin 4.4 g/dL (3.1-4.5); Alkaline Phosphatase 52 U/L (40-110); Anion Gap 16 mmol/L (10-20); BUN (Urea Nitrogen) 8 mg/dL (8.9-20.6); Bilirubin, Total 0.4 mg/dL (0.3-1.2); Calc. Creatinine Clearance 0 mL/min (70-130); Calcium 9.1 mg/dL (7.8-10.44); Carbon Dioxide 24 mmol/L (22-29); Chloride 105 mmol/L (98-107); Globulin 2.3 g/dL (2.4-3.5); Glucose 100 mg/dL (70-105); Potassium 4.0 mmol/L (3.5-5.1); Sodium 141 mmol/L (136-145); Troponin I 0.013 ng/mL (< 0.028)
[2025-02-18 16:28] LABS: #Basophils 0.1 thou/uL (0.0-0.2); #Eosinophils 0.2 thou/uL (0.0-0.7); #Lymphocytes 1.9 thou/uL (1.20-3.40); #Monocytes 0.6 thou/uL (0.11-0.59); #Neutrophils 3.3 thou/uL (1.40-6.50); %Basophils 1.7 % (0.0-1.0); %Eosinophils 2.9 % (0.0-10.0); %Lymphocytes 31.8 % (21.0-51.0); %Monocytes 9.4 % (0.0-10.0); %Neutrophils 54.1 % (42.0-75.0); Hematocrit 53.6 % (42.0-52.0); Hemoglobin 17.3 g/dL (14.0-18.0); Mean Corpuscular Hemoglobin 29.5 pg (27.0-31.0); Mean Corpuscular Volume 91.4 fl (78.0-98.0); Platelet Count 243 10x3/uL (130-400); Red Blood Cell (RBC) Count 5.86 mill/uL (4.70-6.10); White Blood Cell (WBC) Count 6.1 10x3/uL (4.8-10.8)
== END 2025-02-18 16:44 | disposition home or self-care (01) ==
LOC: BURERS 15:38
DX: R07.9 Chest pain, unspecified (principal); F90.9 Attention-deficit hyperactivity disorder, unspecified type; F17.290 Nicotine dependence, other tobacco product, uncomplicated
CPT/HCPCS: 71046; 80053; 83880; 84484; 85025; 93005; 94760